=== PATIENT | male | born 1940 | race Two or more races ===

== ENCOUNTER → 2019-08-20 | Day surgery (SDC) | payer MEDICARE ==
[~2019-08-20] MED LIST: ATOR40TA59 PO; IV RINGERS,LACTATED 1000ML 1,000 ML IV SCH; LISI10TA2 PO; METF500T16 PO; PROPOFOL 40 ML IV ONE
[2019-08-20 10:52] VITALS: BP 127/72
--- NOTE | 2019-08-20 15:51 | CONS ---
DATE OF CONSULTATION: 08/20/2019 REFERRING PHYSICIAN: Bree Olmedo APRN REASON FOR CONSULTATION: Diarrhea and dysphagia. HISTORY OF PRESENT ILLNESS: This is a 78-year-old male with past medical history significant for diabetes, hypertension, and hyperlipidemia, seen for colonoscopy. He had stools, which have been loose in nature. Family history is negative for colon cancer. He had increased diarrhea without melena and/or hematochezia. Weight and appetite are stable despite the difficulties. He does have solid food dysphagia and cervical achalasia with minimal heartburn with continued issues, he requests additional evaluation. PAST MEDICAL HISTORY: Hypertension, hyperlipidemia and diabetes. ALLERGIES: None. SOCIAL HISTORY: Nonsmoker, nondrinker. MEDICATIONS: Atorvastatin, lisinopril, and metformin. FAMILY HISTORY: Noncontributory. PAST SURGICAL HISTORY: Noncontributory. REVIEW OF SYSTEMS: Per above. PHYSICAL EXAMINATION: GENERAL: Reveals a well-nourished, well-developed male, who is alert, cooperative, in no acute distress. VITAL SIGNS: Pulse is 80, respirations 16. LUNGS: Clear. CARDIOVASCULAR: Reveals an S1, S2 without S3, S4 or appreciable murmur. ABDOMEN: Reveals soft abdomen, normal bowel sounds, without appreciable hepatosplenomegaly. IMPRESSION AND PLAN: 1. Dysphagia. The etiology is to be determined. Differential includes Schatzki's ring, eosinophilic esophagitis, Newell's, achalasia, malignancy and/or presbyesophagus. EGD with possible biopsy and dilatation is recommended. 2. Diarrhea. The etiology is to be determined, may be drug induced with metformin. Differential also includes collagenous colitis, polyps, cancer, microscopic and/or lymphocytic colitis and pancreatic insufficiency. Therefore, recommend colonoscopy with possible biopsy. Risks and benefits have been discussed and the patient is willing to proceed. PATSY ESCOBAR MD DR: MARYAN/jocelynn JOB#: [id number] / [id number]
--- NOTE | 2019-08-23 16:06 | PATHOLOGY ---
[facility] Accession Number: [id number] . 01 Material submitted: . PART A: cecum - CECAL POLYP PART B: colon - RANDOM COLON BX'S PART C: colon - TRANSVERSE COLON POLYP. Modifiers: transverse . 01 Clinical history: . Pre-OP DX: Diarrhea, dysphagia Post-OP DX: Polyp . 02 Diagnosis: A. Colon biopsies, cecal polyps: - Tubular adenomas. . B. Colonic mucosa, random colon biopsies: - No significant pathologic abnormalities. . C. Colon biopsies, transverse colon polyp: - Tubular adenoma. (JPM:[facility] 08/23/2019) [facility] 08/23/2019 1251 Local . 02 Comment: Sections of the cecal biopsy reveal multiple segments of tubular adenoma. Clinically, there were two polyps. There is no high-grade dysplasia or evidence of malignancy. . Sections of the random colon biopsy reveal multiple segments of colonic mucosa containing a few focally hyperplastic mucosal-associated lymphoid aggregates. There is no evidence of a chronic destructive colitis, lymphocytic colitis, or collagenous colitis. . Sections of the transverse colon biopsy reveal multiple segments of tubular adenoma. Clinically there was a single polyp. There is no high-grade dysplasia or evidence of malignancy. (JPM:[facility] 08/23/2019) . 02 Electronically signed: . Juan Morrison MD, Pathologist NPI- [id number] . 01 Gross description: . A. Received in formalin labeled "Vipul Tomasz, cecal polyp," are multiple segments of cheung soft tissue measuring 2.0 x 0.5 x 0.1 cm in aggregate dimensions. The specimen is filtered and entirely submitted in cassette A1. . B. Received in formalin labeled "Matthew, Tomasz, random colon BX's," are multiple segments of cheung soft tissue measuring 2.3 x 0.6 x 0.1 cm in aggregate dimensions. The specimen is filtered and entirely submitted in cassette B1. . C. Received in formalin labeled "Matthew, Tomasz, transverse colon polyp," are multiple segments of cheung soft tissue measuring 2.3 x 0.2 x 0.1 cm in aggregate dimensions. The specimen is filtered and entirely submitted in cassette C1. (TSD; 08/20/2019) TOB/TOB 08/20/2019 1656 Local . 02 Pathologist provided ICD-10: D12.0, D12.3 . 02 CPT . 647628, [id number], [id number] Specimen Comment: A courtesy copy of this report has been sent to [phone], [phone] Specimen Comment: [id number] Specimen Comment: Report sent to and Performed at: 01 [facility] [address] [facility] [address], [place] [id number] MD Thomas Carmen MD Phone: [phone] Performed at: 02 [facility] [address] [place], [place] [id number] MD Juan Morrison MD Phone: [phone]
== END ==
LOC: SURG 09:18
PROVIDERS: ATTEND Internal Medicine Gastroenterology
DX: R19.7 Diarrhea, unspecified (principal); D12.0 Benign neoplasm of cecum; D12.3 Benign neoplasm of transverse colon; K22.2 Esophageal obstruction; K64.0 First degree hemorrhoids; I10 Essential (primary) hypertension; E78.5 Hyperlipidemia, unspecified; E11.9 Type 2 diabetes mellitus without complications; Z79.84 Long term (current) use of oral hypoglycemic drugs
CPT/HCPCS: 43235; 43450; 45380; 45385; J2704